=== PATIENT | female | born 1970 | race Caucasian/White ===

== ENCOUNTER 2017-06-29 05:48 | Observation (INO) | payer OTHER ==
[~2017-06-29] VITALS: Ht 154.9 cm; Wt 95.0 kg
[2017-06-29] VITALS (19 sets, daily range): BP systolic 114–204; BP diastolic 63–113; PULSE 90–104; RESP 14–20; Ht 154.9 cm; Wt 95.0 kg
[2017-06-29] MEDS ORDERED: GABA100C14 PO (06:34)
[2017-06-29] MEDS ORDERED: IBUP800T25 PO (06:34)
[2017-06-29] MEDS ORDERED: ACET500C5 PO (06:34)
[2017-06-29] MEDS ORDERED: FENTAnyl 50 MCG/ML VIAL ONE ×2 (06:55→09:08)
[2017-06-29] MEDS ORDERED: ROCURONIUM 50 MG INJ ONE (06:55)
[2017-06-29] MEDS ORDERED: MIDAZOLAM 1 MG/ML 2 ML INJ ONE (06:55)
[2017-06-29] MEDS ORDERED: PROPOFOL 1000 MG INJ ONE (07:00)
[2017-06-29] MEDS ORDERED: CEFAZOLIN 1 GM INJ ONE (07:00)
[2017-06-29] MEDS ORDERED: PROPOFOL 200 MG INJ ONE (07:00)
[2017-06-29] MEDS ORDERED: LIDOCAINE 2% (SDV) 5 ML INJ ONE (07:00)
--- NOTE | 2017-06-29 07:00 | HPN ---
Date/Time of Note Date/Time of Note DATE: 06/29/17 TIME: 07:00 Interval H&P Admission Note Pt. seen H&P reviewed: No system changes YKE BRUNO MD Jun 29, 2017 07:00
[2017-06-29] MEDS ORDERED: DEXAMETHASONE 4 MG/ML 1 ML INJ ONE (07:01)
[2017-06-29] MEDS ORDERED: ONDANSETRON 4 MG INJ ONE (07:02)
[2017-06-29] MEDS ORDERED: GELATIN SIZE 100 SPONGE ONE (07:05)
[2017-06-29] MEDS ORDERED: POLYMYXIN/BACITRACIN 1L IRRIG ONE (07:06)
[2017-06-29] MEDS ORDERED: BUPIVACAINE 0.25%/EPI (SDV) 30 ML INJ ONE (07:06)
[2017-06-29] MEDS: THROMBIN 5000 UNIT VIAL ONE ×2 (08:23→10:51)
[2017-06-29] MEDS ORDERED: HEMOSTATIC MATRIX SYG ZFS ONE ×2 (08:23→10:51)
[2017-06-29] MEDS ORDERED: HYDROCODONE/APAP (5/325) TAB PO PRN (11:30)
[2017-06-29] MEDS ORDERED: PROCHLORPERAZINE 10 MG TAB PO PRN (11:30)
[2017-06-29] MEDS ORDERED: ONDANSETRON 4 MG INJ IV PRN ×2 (11:30→12:00)
[2017-06-29] MEDS ORDERED: NACL 0.9% 3 ML SYG IV SCH (11:30)
[2017-06-29] MEDS ORDERED: ACETAMINOPHEN 325 MG TAB PO PRN (11:30)
[2017-06-29] MEDS ORDERED: HYDROmorphONE 0.5 MG/0.5 ML SYG IV PRN (11:30)
[2017-06-29] MEDS ORDERED: KETOROLAC 30 MG INJ IV PRN (12:00)
[2017-06-29] MEDS ORDERED: METOCLOPRAMIDE 10 MG INJ IV PRN (12:00)
[2017-06-29] MEDS ORDERED: HYDROmorphONE (0.2 MG/ML) 10ML SYG IV PRN (12:00)
--- NOTE | 2017-06-29 12:00 | OPR ---
Date/Time of Note Date/Time of Note DATE: 06/29/17 TIME: 11:44 Operative Report Free Text/Dictation DATE OF OPERATION: 06/29/2017 PREOPERATIVE DIAGNOSES: Left L5-S1 disk herniation with radiculopathy POSTOPERATIVE DIAGNOSES: Left L5-S1 disk herniation with radiculopathy OPERATION PERFORMED: 1. Left L5-S1 microdiscectomy 2. Left L4-5 partial laminotomy and medial facetectomy SURGEON: Kye Bruno MD SEAMING MACHINE OPERATOR: Chilo Verde MD ANESTHESIA: General endotracheal ESTIMATED BLOOD LOSS: Minimal SURGICAL INDICATION: The patient is a 47 year-old woman who presents with a history of left lower extremity pain and weakness. She was found to have a disc herniation which correlated well with their symptoms. The patient had failed conservative treatment. Risks, benefits, and alternatives to microdiscectomy were explained to the patient and they wished to proceed. Risks explained included but were not exclusive of bleeding, infection, cauda equina syndrome, nerve injury, dural tear, iatrogenic instability, recurrent disc herniation, fracture, vascular injury, bowel injury, stroke, heart attack and pulmonary embolism. DESCRIPTION OF TECHNIQUE: The patient was identified in the preoperative area and taken to the operating room. Rapid induction of general endotracheal anesthesia was performed. The patient was given 2 g of cefazolin for prophylaxis. The patient was then placed in the prone position on a Mohsen frame on a José Antonio table with all bony prominences well padded. The back was prepped and draped in the usual sterile manner. Using a spinal needle and intraoperative fluoroscopy, the appropriate level was clearly identified. The skin was injected using 0.25% Marcaine with epinephrine. Longitudinal midline incision was then created using a 10 blade. Further dissection through soft tissue was performed using electrocautery down to the spinous processes. The dissection was taken down the left side of the lamina and over the facet joint capsule. A self-retaining retractor was applied. Again, intraoperative fluoroscopy confirmed the appropriate level. The microscope was brought into use for microdissection. A small portion of the caudal aspect of the cephalad lamina and L5-S1 medial facet was resected using a high-speed bur. A series of Kerrison rongeurs were then used to resect the ligamentum flavum. The dura and S1 traversing nerve root were both directly visualized. These were retracted gently in a medial direction. Immediately, the extruded disc fragment was noted. The pseudo anulus was incised using an 11 blade. Several loose fragments of disk were removed. These were removed back to a stable portion of the disk. The disk space was further pressurized using a using normal saline through a syringe to ensure that no loose fragments remained behind. Palpation with a ball-tip probe did not reveal any further stenosis. The traversing S1 nerve root was noted to be significantly decompressed. During this procedure it was noted that both left L5 and S1 amplitudes were decreased. To ensure thorough neurological decompression and avoid potential persistent L5 nerve root compression, it was decided to perform a partial laminotomy at the superior aspect of L5 laminae and a partial L4-5 medial facetectomy was performed to trace the L5 nerve root. A series of Kerrison rongeurs were then used to resect a small portion of the ligamentum flavum. The L5 nerve root was noted to be decompressed. At the conclusion of the procedure both L5 and S1 amplitudes had returned to normal. Meticulous attention was paid towards hemostasis using FloSeal as well as Gelfoam and thrombin. Care was taken to remove all FloSeal and Gelfoam prior to wound closure. Upon completion of the procedure there was a pin hole sized anterior S1 nerve root sleeve violation noted. This was noted to be a pin hole in size. A piece of duragen and durocele was applied to this region prior to closure. The fascia was then closed using 1 Vicryl in an interrupted fashion. Subcutaneous tissue was closed using 2-0 Vicryl in an interrupted fashion. The skin was closed using a running 4-0 Monocryl stitch. The wound was dressed using Dermabond and sterile dressing. The patient was returned to the supine position. He was extubated immediately postoperatively and taken to the recovery room in stable condition. I was physically present and participated in the entire operation from incision to closure. COMPLICATIONS: anterior S1 nerve sleeve violation. Procedure Date: Jun 29, 2017 Preoperative Diagnosis PREOPERATIVE DIAGNOSES: Left L5-S1 disk herniation with radiculopathy Postoperative Diagnosis POSTOPERATIVE DIAGNOSES: Left L5-S1 disk herniation with radiculopathy Surgeon see signature line Ruching Machine Operator Dr. Verde Anesthesia Type: general Estimated Blood Loss: 10 - 50 ml's Transfusion none Specimen L5-S1 disk Grafts/Implants none Complications none Pt Condition Post Procedure: stable Disposition: PACU Procedure Description DESCRIPTION OF TECHNIQUE: The patient was identified in the preoperative area and taken to the operating room. Rapid induction of general endotracheal anesthesia was performed. The patient was given 2 g of cefazolin for prophylaxis. The patient was then placed in the prone position on a Mohsen frame on a José Antonio table with all bony prominences well padded. The back was prepped and draped in the usual sterile manner. Using a spinal needle and intraoperative fluoroscopy, the appropriate level was clearly identified. The skin was injected using 0.25% Marcaine with epinephrine. Longitudinal midline incision was then created using a 10 blade. Further dissection through soft tissue was performed using electrocautery down to the spinous processes. The dissection was taken down the left side of the lamina and over the facet joint capsule. A self-retaining retractor was applied. Again, intraoperative fluoroscopy confirmed the appropriate level. The microscope was brought into use for microdissection. A small portion of the caudal aspect of the cephalad lamina and L5-S1 medial facet was resected using a high-speed bur. A series of Kerrison rongeurs were then used to resect the ligamentum flavum. The dura and S1 traversing nerve root were both directly visualized. These were retracted gently in a medial direction. Immediately, the extruded disc fragment was noted. The pseudo anulus was incised using an 11 blade. Several loose fragments of disk were removed. These were removed back to a stable portion of the disk. The disk space was further pressurized using a using normal saline through a syringe to ensure that no loose fragments remained behind. Palpation with a ball-tip probe did not reveal any further stenosis. The traversing S1 nerve root was noted to be significantly decompressed. During this procedure it was noted that both left L5 and S1 amplitudes were decreased. To ensure thorough neurological decompression and avoid potential persistent L5 nerve root compression, it was decided to perform a partial laminotomy at the superior aspect of L5 laminae and a partial L4-5 medial facetectomy was performed to trace the L5 nerve root. A series of Kerrison rongeurs were then used to resect a small portion of the ligamentum flavum. The L5 nerve root was noted to be decompressed. At the conclusion of the procedure both L5 and S1 amplitudes had returned to normal. Meticulous attention was paid towards hemostasis using FloSeal as well as Gelfoam and thrombin. Care was taken to remove all FloSeal and Gelfoam prior to wound closure. Upon completion of the procedure there was a pin hole sized anterior S1 nerve root sleeve violation noted. This was noted to be a pin hole in size. A piece of duragen and durocele was applied to this region prior to closure. The fascia was then closed using 1 Vicryl in an interrupted fashion. Subcutaneous tissue was closed using 2-0 Vicryl in an interrupted fashion. The skin was closed using a running 4-0 Monocryl stitch. The wound was dressed using Dermabond and sterile dressing. The patient was returned to the supine position. He was extubated immediately postoperatively and taken to the recovery room in stable condition. I was physically present and participated in the entire operation from incision to closure. KYE BRUNO MD Jun 29, 2017 11:57
[2017-06-29] MEDS: CEFAZOLIN 1 GM/50 ML (PMX) 50 ML IVPB SCH ×2 (12:28→18:02)
--- NOTE | 2017-06-29 13:21 | RADRPT ---
PROCEDURE: Intraoperative fluoroscopy. CLINICAL INDICATION: Intraoperative fluoroscopy. TECHNIQUE: Intraoperative fluoroscopy of the lumbar spine was performed. COMPARISON: None. FINDINGS: Intraoperative fluoroscopy of the lumbar spine was performed. Fluoroscopy time: 10.2 min Images: 2 IMPRESSION: As above. RPTAT: HVF .Toan Klein MD, MD Date Time Electronically viewed and signed by .Toan Klein MD, on 06/29/2017 13:21 .F/
[2017-06-29] MEDS: HYDROCODONE/APAP (5/325) TAB PO PRN ×2 (16:17→20:42)
[2017-06-30] MEDS: CEFAZOLIN 1 GM/50 ML (PMX) 50 ML IVPB SCH ×2 (00:16→06:08)
[2017-06-30] MEDS: HYDROCODONE/APAP (5/325) TAB PO PRN ×3 (00:20→14:01)
[2017-06-30 08:00] VITALS: BP 129/71; RESP 18
[2017-06-30] MEDS ORDERED: HYDROmorphONE 2 MG TAB PO PRN (10:49)
--- NOTE | 2017-06-30 12:21 | PDOCDIS ---
Discharge Instructions CONDITION Patient Condition: Good HOME CARE INSTRUCTIONS: Diet Instructions: Regular ACTIVITY: Activity Restrictions: Slowly Increase Activity Rest between Activity Avoid heavy lifting Do not operate Machinery Do not operate Power Tool Avoid Heavy Housework Bathing Restrictions: Shower FOLLOW UP/APPOINTMENTS Follow-up Plan Follow-up with Dr. Bruno in 2 weeks KYE BRUNO MD Jun 30, 2017 12:21
[2017-06-30 14:00] VITALS: BP 148/71; RESP 18
== END 2017-06-30 19:15 | disposition home or self-care (01) ==
LOC: SUR 05:48 → SDS 05:48 → EDSTATUS 07:30 → SUR 10:30 → SDS 10:30 → SUR 11:15 → MS1 11:15
PROVIDERS: ADMIT Orthopaedic Surgery; ATTEND Orthopaedic Surgery
DX: M51.17 Intervertebral disc disorders with radiculopathy, lumbosacral region (principal)
CPT/HCPCS: 72100; 87086; 88304; 97116; 97163; 97530; G0378; J0690; J1100; J2250; J2405; J3010

== ENCOUNTER 2018-09-09 09:04 | Day surgery (SDC) | payer OTHER ==
[~2018-09-09] VITALS: Ht 154.9 cm; Wt 93.0 kg
[~2018-09-09 09:04] MED LIST: ACET500C5 PO; GABA100C14 PO
[2018-09-09 09:47] VITALS: Ht 154.9 cm; Wt 93.0 kg
[2018-09-09 10:15] VITALS: BP 183/90; PULSE 75; RESP 22
--- NOTE | 2018-09-09 10:23 | PREAC ---
Date/Time of Note Date/Time of Note DATE: 09/09/18 TIME: 10:22 Anesthesia Eval and Record Evaluation Time Pre-Procedure Interview DATE: 09/09/18 TIME: 10:22 Age 48 Sex female NPO: 8 hrs Preoperative diagnosis hx of colon cancer Planned procedure screening Past Medical History Past Medical History: None Surgery & Anesthesia Issues No known issue Meds Anticoagulation: No Beta Juliet within 24 hr: No Reason Beta Juliet not given: Pt. not on B-Juliet Reported Medications [None] No Conflict Check 09/09/18 Discontinued Reported Medications Gabapentin* (Gabapentin*) 100 Mg Capsule, 200 MG PO TID, #180 CAP 06/29/17 Acetaminophen* (Tylophen*) 500 Mg Capsule, 500 MG PO Q6H PRN for PAIN, TAB 06/29/17 Meds reviewed: Yes Allergies Coded Allergies: No Known Allergy (Unverified , 06/29/17) Allergies Reviewed: Yes Labs/Studies Labs Reviewed: Reviewed by anesthesiologist test: N/A Pre-procedure Exam Airway: Adequate mouth opening, Adequate thyromental dist Mallampati: Mallampati III Teeth: Normal Lung: Normal Heart: Normal ASA Physical Status ASA physical status: 1 Emergency: None Pre-operative Attestations Prior to commencing anesthesia and surgery, the patient was re-evaluated, there was verification of: *The patient's identity *The results of appropriate recent lab work and preoperative vital signs *The above evaluation not changing prior to induction *Anesthetic plan, risk benefits, alternative and complications discussed with patient/family; questions answered; patient/family understands, accepts and wishes to proceed. MARAL HOFFMANN DO Sep 09, 2018 10:23
[2018-09-09] MEDS ORDERED: MIDAZOLAM 1 MG/ML 2 ML INJ ONE (10:25)
[2018-09-09] MEDS ORDERED: PROPOFOL 40 ML ONE (10:25)
[2018-09-09] MEDS ORDERED: LIDOCAINE 2% (SDV) 5 ML INJ ONE (10:25)
[2018-09-09] MEDS ORDERED: HYDROmorphONE 1 MG/5 ML IV SYRINGE IV PRN (10:30)
[2018-09-09] MEDS ORDERED: ONDANSETRON 4 MG INJ IV PRN (10:30)
--- NOTE | 2018-09-09 11:14 | PAC ---
Date/Time of Note Date/Time of Note DATE: 09/09/18 TIME: 11:13 Post-Anesthesia Notes Post-Anesthesia Note Last documented vital signs 1114 135/69 65 18 100% Activity: WNL Respiratory function: WNL Cardiovascular function: WNL Mental status: Baseline Pain reasonably controlled: Yes Hydration appropriate: Yes Nausea/Vomiting absent: Yes MARAL HOFFMANN DO Sep 09, 2018 11:14
[2018-09-09 11:23] VITALS: BP 149/78; RESP 20
== END 2018-09-09 14:03 | disposition home or self-care (01) ==
LOC: GIL 09:04
PROVIDERS: ATTEND Internal Medicine Gastroenterology
DX: R19.4 Change in bowel habit (principal); D12.5 Benign neoplasm of sigmoid colon; K64.8 Other hemorrhoids
CPT/HCPCS: 45380; 88305; J2250; Z7610